=== PATIENT | male | born 1960 | race Two or more races ===

== ENCOUNTER 2018-01-02 20:23 | Emergency (ER) | payer MEDICAID, OTHER ==
[~2018-01-02] VITALS: Ht 177.8 cm; Wt 74.8 kg
[2018-01-02] MEDS ORDERED: LORazepam 2MG/ML-1ML VIAL ONE (20:36)
[2018-01-02] MEDS ORDERED: MIDAZOLAM DRIP 50 mg/50mL 50 ML IV ONE (20:41)
[2018-01-02] MEDS ORDERED: MIDAZOLAM DRIP 50 mg/50mL 50 ML IV SCH ×2 (21:06→21:41)
[2018-01-02] MEDS ORDERED: MIDAZOLAM HCL 1MG/1ML-2 ML VIAL IV ONE (21:15)
[2018-01-02] MEDS ORDERED: MIDAZOLAM HCL 5 MG/ML-1ML VIAL IV ONE ×2 (21:15)
[2018-01-02] MEDS ORDERED: LORazepam 2MG/ML-1ML VIAL IV ONE (21:15)
[2018-01-02 21:24] LABS: Basophils # (auto) 0 uL; Basophils % (auto) 0.1 % (0.0-2.0); Eosinophils # (auto) 0 uL; Hematocrit 42.5 % (41.0-53.0); Hemoglobin 14.7 g/dL (13.5-17.5); Lymphocytes # (auto) 0.5 uL; Lymphocytes % (auto) 2.5 % (10.0-50.0); Mean Corpuscular Hemoglobin 33.6 pg (28.0-32.0); Mean Corpuscular Hgb Conc. 34.7 g/dL (32.0-36.0); Mean Corpuscular Volume 96.7 fL (80.0-100.0); Monocytes # (auto) 1.2 uL; Monocytes % (auto) 6.5 % (0.0-12.0); Neutrophils # (auto) 17.1 uL; Neutrophils % (auto) 90.9 % (37.0-80.0); Platelet Count (auto) 253 10^3/uL (140-450); Red Blood Cells 4.39 10^6/uL (4.5-5.90); Red Cell Distribution Width 12.8 % (11.8-14.3); White Blood Cell 18.8 10^3/uL (4.4-10.8)
[2018-01-02] MEDS ORDERED: ETOMIDATE (2MG/ML) 20ML VIAL IV ONE ×2 (21:45)
[2018-01-02] MEDS ORDERED: SUCCINYLCHOLINE CHLORIDE 20 MG/ML 10ML VIAL IV ONE ×2 (21:45→21:46)
[2018-01-02] MEDS ORDERED: DEXAMETHASONE SOD PHOS 10MG/1ML VIAL INJ IV ONE (21:45)
[2018-01-02] MEDS ORDERED: MANNITOL 20% SOLN 100 gm/500ml 500 ML IV ONE (21:45)
[2018-01-02 21:55] LABS: Lactic Acid w/Reflex 2.5 mmol/L (0.4-2.0)
[2018-01-02 21:58] LABS: Alanine Aminotransferase 26 U/L (16-61); Albumin 4.9 g/dL (3.4-5.0); Alkaline Phosphatase 65 U/L (45-117); Anion Gap 23 (5-15); Aspartate Aminotransferase 50 U/L (15-37); BUN/Creatinine Ratio 9.3; Blood Alcohol < 3.0 mg/dL (0-5); Blood Urea Nitrogen 48 mg/dL (7-18); Calcium 9.3 mg/dL (8.5-10.1); Carbon Dioxide 18 mmol/L (21-32); Chloride 101 mmol/L (98-107); GFR African American 15 mL/min; GFR Non-African American 12 mL/min; Potassium 4.2 mmol/L (3.5-5.1); Sodium 142 mmol/L (136-145); Total Protein 8.3 g/dL (6.4-8.2)
[2018-01-02 22:05] LABS: Glucose 410 mg/dL (74-106)
[2018-01-02] MEDS ORDERED: NOREPINEPHRINE 8 MG/250ML KIT 250 ML IV ONE (22:11)
[2018-01-02] MEDS ORDERED: NOREPINEPHRINE 8 MG/250ML KIT 250 ML IV SCH (22:22)
[2018-01-02 23:07] LABS: Urine Bacteria FEW /hpf (None Seen); Urine Blood Negative /uL (Negative); Urine Hyaline Cast FEW /lpf (0 - 2); Urine WBC 2 /hpf (0 - 3)
[2018-01-02 23:14] VITALS: BP 131/68
[2018-01-02 23:39] LABS: Alcohol, Urine < 3.0 mg/dL (0-5); Amphetamine Screen, Urine NEGATIVE (NEGATIVE); Barbiturate Scree,Urine NEGATIVE (NEGATIVE); Benzodiazephine Screen, Urine POSITIVE (NEGATIVE); Cannabinoid Screen, Urine POSITIVE (NEGATIVE); Cocaine Screen, Urine NEGATIVE (NEGATIVE); Opiate Scree,Urine POSITIVE (NEGATIVE); Phencyclidine Screen, Urine NEGATIVE (NEGATIVE)
== END 2018-01-03 00:04 | disposition short-term general hospital (02) ==
LOC: EDBD 20:23 → ER 20:35
DX: R41.82 Altered mental status, unspecified (principal); R06.89 Other abnormalities of breathing
CPT/HCPCS: 31500; 36415; 36600; 70450; 71045; 71250; 72125; 72128; 72131; 73590; 73610; 74176; 80053; 80307; 80320; 81001; 82805; 82962; 83605; 84484; 85025; 87040; 87070; 87077; 87186; 87205; 96365; 96367; 96375; 99285; J0330; J1100; J2060; J2250; J7030; 93005; 94002